=== PATIENT | female | born 1950 | race Two or more races ===

== ENCOUNTER 2021-05-21 05:15 | Day surgery (SDC) | payer OTHER ==
[2021-05-17 16:15] VITALS: BMI 33.8
[2021-05-21] MEDS ORDERED: MIDAZOLAM HCL 2 MG/2 ML SINGLE DOSE VIAL ONE (07:41)
[2021-05-21] MEDS ORDERED: ONDANSETRON 4 MG/2 ML VIAL IVPUSH PRN (08:47)
[2021-05-21] MEDS ORDERED: ACETAMINOPHEN 500 MG TABLET (FP) PO PRN (08:47)
[2021-05-21] MEDS ORDERED: LACTATED RINGERS SOLUTION 1,000 ML IV SCH (09:00)
[2021-05-21] MEDS ORDERED: SEVOFLURANE 250 ML BTL ONE (09:19)
[2021-05-21 10:37] VITALS: BP 127/61; PULSE 66; TEMP 97.8
== END 2021-05-21 09:45 | disposition home or self-care (01) ==
LOC: JASU-SURG 05:15
PROVIDERS: ATTEND Urology
PROC: 0TF3XZZ Fragmentation in Right Kidney Pelvis, External Approach (ICD-10-PCS; principal; 2021-05-21 08:00)
DX: N20.0 Calculus of kidney (principal); E11.9 Type 2 diabetes mellitus without complications; I10 Essential (primary) hypertension
CPT/HCPCS: 82962